=== PATIENT | male | born 1990 | race Caucasian/White ===

== ENCOUNTER 2018-09-04 18:28 | Emergency (ER) | payer SELFPAY ==
[2018-09-04] MEDS ORDERED: Lorazepam 2 MG/ML VIAL ONE (18:49)
[2018-09-04 18:55] LABS: Bilirubin Small (Negative); Blood, Urine Negative (Negative); Clarity Clear (Clear); Glucose, Urine (Dipstick) Negative (Negative); Leukocyte Negative (Negative); Nitrite Negative (Negative); Protein, Urine (Dipstick) Negative (Neg-Trace)
[2018-09-04 19:06] LABS: Cocaine Metabolite Screen Not Detected (NotDetected); Phencyclidine (PCP) Not Detected (NotDetected); THC/Cannabinoid Screen Not Detected (NotDetected)
[2018-09-04 19:07] LABS: Amphetamine Detected (NotDetected); Barbiturates Screen Not Detected (NotDetected); Benzodiazepine Screen Not Detected (NotDetected); Medtox Control Line Valid? VALID (VALID); Methadone Not Detected (NotDetected); Methamphetamine Not Detected (NotDetected); Opiate Screen Not Detected (NotDetected); Oxycodone Screen Not Detected (NotDetected); Tricyclic Screen Not Detected (NotDetected)
[2018-09-04 19:08] LABS: Acetaminophen Less than 6.0 mcg/mL (10.0-30.0); Alcohol Less than 10 mg/dL (Less than 10); Salicylate Less than 8.0 mg/dL (15.0-30.0)
[2018-09-04 19:10] LABS: ALT (SGPT) 33 U/L (8-55); AST (SGOT) 33 U/L (5-34); Albumin 4.5 g/dL (3.5-5.0); Alkaline Phosphatase 121 U/L (40-150); Anion Gap 19 mmol/L (10-20); BUN (Urea Nitrogen) 13 mg/dL (8.9-20.6); Bilirubin, Total 0.4 mg/dL (0.2-1.2); Calc. Creatinine Clearance 0 mL/min (70-130); Calcium 9.6 mg/dL (7.8-10.44); Carbon Dioxide 23 mmol/L (22-29); Chloride 101 mmol/L (98-107); Estimated GFR-MDRD Greater than 90; Glucose 104 mg/dL (70-105); Potassium 4.1 mmol/L (3.5-5.1); Protein, Total 7.5 g/dL (6.0-8.3); Sodium 139 mmol/L (136-145)
[2018-09-04 19:12] LABS: Hemoglobin 16.9 g/dL (14.0-18.0); Lymphocytes 8 % (21-51); MDiff Complete? YES; Mean Corpuscular Hemoglobin 27.5 pg (27.0-31.0); Mean Corpuscular Volume 83.1 fL (78.0-98.0); Mean Platelet Volume 5.7 fL (7.4-10.4); Monocytes 9 % (0-10); Neutrophil 78 % (42-75); PLT Morphology Comment Appears Increased; Platelet Count 494 thou/uL (130-400); RBC Distribution Width 12.2 % (11.5-14.5); RBC Morphology Normal; Reactive Lymphocytes 5 % (0-10); Red Blood Cell (RBC) Count 6.16 mill/uL (4.70-6.10)
--- NOTE | 2018-09-04 19:33 | CT ---
CT HEAD WITHOUT CONTRAST: 09/04/18 Multiple axial tomograms obtained through the head without IV enhancement. INDICATIONS: Seizure. The ventricles have normal size and position. No evidence of intracranial mass, hemorrhage, or infarc t. Sinuses and mastoids are clear. IMPRESSION: No acute findings. POS: [facility]
== END 2018-09-04 20:48 | disposition short-term general hospital (02) ==
LOC: MADERS 18:28
DX: R41.82 Altered mental status, unspecified (principal); I45.81 Long QT syndrome; F90.9 Attention-deficit hyperactivity disorder, unspecified type; F17.220 Nicotine dependence, chewing tobacco, uncomplicated; F32.9 Major depressive disorder, single episode, unspecified; Z79.899 Other long term (current) drug therapy
CPT/HCPCS: 70450; 80053; 80306; 80307; 81003; 85025; 96374; J2060